=== PATIENT | female | born 1935 | race Caucasian/White ===

== ENCOUNTER 2025-02-23 09:34 | Emergency (ER) | payer OTHER ==
--- OUTSIDE RECORDS SUMMARY | 2025-02-23 09:49 | XMS REPORT | Continuity of Care Document ---
Author Name Unknown Address [address] [place] [address] [facility] Address [address] [place] [address] Care Team Providers Care Loan Teller Name Role Phone MANDIE BENNETT JR Primary Care Physician UnaMARLIN Galeano Attending Clinician Unavailable MARLIN PATHAK Attending Clinician Unavailable Jarret Shaw MD Attending Clinician [phone] JARRET SHAW Attending Clinician UnavailJARRET Bejarano Attending Clinician Unavailstewart e Doctor Unassigned, [place] Attending Clinician U Pat Jarvis Attending Clinician [phone] PAT ANTHONY Attending Clinician Unavailable Payers Payer Name Policy Type Policy Number Effective Date Expirati on Date Source [facility] MEDICARE ADVANTAGE [id number] 2022 00:00:00 [facility] PPO [id number] 2022 00:00:00 Problems Condition Name Condition Details Condition Category Status Onset Date Resolution Date Last Treatment Date Treating Clinician Comments Source 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 ICD10 Diagnosis Term Label Designer Utility [facility] Allergies, Adverse Reactions, Alerts Allergy Name Allergy Type Status Severity Reaction(s) Onset Date Inactive Date Treating Clinician Comments Source TETANUS VACCINES AND TOXOID Drug Class Active Anaphylaxis 05-17 00:00: 00 [facility] Tetanus Vaccines And Toxoid Propensi ty to adverse reaction s Active Anaphylaxis 05-17 00:00: 00 [facility] Social History Social Habit Start Date Stop Date Quantity Comments Source Sexual orientation [facility] Alcohol intake 2024-01-17 00:00:00 2024-01-17 00:00:00 Current non-drinker of alcohol (finding) [facility] History of Social function 2024-01-17 00:00:00 2024-01-17 00:00:00 [facility] Cigarettes smoked current (pack per day) - Reported 2023-04-11 00:00:00 2023-04-11 00:00:00 [facility] Cigarette pack-years 2023-04-11 00:00:00 2023-04-11 00:00:00 [facility] Tobacco use and exposure 2023-04-11 00:00:00 2023-04-11 00:00:00 Smokeless tobacco non-user [facility] History of tobacco use 1997-03-25 00:00:00 Cigarette Smoker [facility] Sex Assigned At 1935 00:00:00 1935 00:00:00 [facility] Smoking Status Start Date Stop Date Source Ex-smoker 2023-04-11 00:00:00 2023-04-11 00:00:00 [facility] Medications Ordered Medication Name Filled Medication Name Start Date Stop Date Current Medication? Ordering Clinician Indication Dosage Frequency Signature (SIG) Comments Components Source IBUPROFEN 600 mg tablet 11-30 00:00: 00 Yes [id number] TAKE 1 TAB BY MOUTH EVERY 6 HOURS NEEDED PAIN (SCALE 4-6) [facility] ibuprofen 600 mg tablet 2022-10 00:00: 00 11-30 00:00 :00 No [id number] 600mg Take 1 tablet by mouth every 6 (six) hours as needed for Pain (scale 4-6). [facility] budesonide- formoterol (SYMBICORT) 160-4.5 mcg/actuati on inhaler 2017-10 0 00:00: 00 Yes 2{puff} Inhale 2 Puffs 2 (two) times daily. [facility] nebivolol (BYSTOLIC) 10 mg tablet 05-27 15:17: 20 Yes 10mg Take 10 mg by mouth daily. [facility] losartan 50 mg tablet 05-27 15:17: 20 Yes 50mg Take 50 mg by mouth daily. [facility] zolpidem 10 mg tablet 05-27 15:17: 20 Yes 10mg Take 10 mg by mouth at bedtime as needed for Insomnia. [facility] furosemide 40 mg tablet 05-27 15:17: 20 Yes 40mg Take 40 mg by mouth daily. [facility] amLODIPine 10 mg tablet 05-27 15:17: 20 Yes 10mg Take 10 mg by mouth daily. [facility] levothyroxi ne 75 mcg tablet 05-27 15:17: 20 Yes 75ug Take 75 mcg by mouth every morning. [facility] potassium chloride 20 mEq tablet 05-27 15:17: 20 Yes 20meq Take 20 mEq by mouth daily. [facility] TURMERIC, BULK, MISC 05-27 15:17: 20 Yes 500mg 500 mg. [facility] ascorbic acid, vitamin C, (VITAMIN C) 500 mg tablet 05-27 15:17: 20 Yes 500mg Take 500 mg by mouth. [facility] albuterol 90 mcg/actuati on inhaler 05-27 00:00: 00 Yes 2{puff} Inhale 2 Puffs every 6 (six) hours as needed for Wheezing or Shortness of Breath. [facility] fluticasone (FLONASE) 50 mcg/actuati on nasal spray 03-25 00:00: 00 Yes 2{spray } Use 2 Sprays in each nostril daily. [facility] DULOXETINE 60 MG ORAL CPDR 05-19 00:00: 00 Yes 1 Cap Oral DAILY [facility] Immunizations Ordered Immunization Name Filled Immunization Name Date Status Comments Source Influenza Virus Vaccine 2017-07-27 00:00:00 Completed [facility] Influenza Virus Vaccine 2017-07-27 00:00:00 Completed [facility] Pneumococcal 13 Conjugate, PCV13 (Prevnar 13) 2017-05-27 00:00:00 Completed [facility] Pneumococcal 13 Conjugate, PCV13 (Prevnar 13) 2017-05-27 00:00:00 Completed [facility] Pneumococcal 13 Conjugate, PCV13 (Prevnar 13) Unknown Completed [facility] Influenza Virus Vaccine Unknown Completed [facility] Pneumococcal 13 Conjugate, PCV13 (Prevnar 13) Unknown Completed [facility] Influenza Virus Vaccine Unknown Completed [facility] Pneumococcal 13 Conjugate, PCV13 (Prevnar 13) Unknown Completed [facility] Influenza Virus Vaccine Unknown Completed [facility] Pneumococcal 13 Conjugate, PCV13 (Prevnar 13) Unknown Completed [facility] Influenza Virus Vaccine Unknown Completed [facility] Pneumococcal 13 Conjugate, PCV13 (Prevnar 13) Unknown Completed [facility] Influenza Virus Vaccine Unknown Completed [facility] Pneumococcal 13 Conjugate, PCV13 (Prevnar 13) Unknown Completed [facility] Influenza Virus Vaccine Unknown Completed [facility] Pneumococcal 13 Conjugate, PCV13 (Prevnar 13) Unknown Completed [facility] Influenza Virus Vaccine Unknown Completed [facility] Pneumococcal 13 Conjugate, PCV13 (Prevnar 13) Unknown Completed [facility] Influenza Virus Vaccine Unknown Completed [facility] Vital Signs Vital Name Observation Time Observation Value Comments S ource Systolic blood pressure 2023-10-18 21:12:00 137 mm[Hg] [facility] Diastolic blood pressure 2023-10-18 21:12:00 79 mm[Hg] [facility] Heart rate 2023-10-18 21:12:00 76 /min [facility] Body height 2023-10-18 21:12:00 162.6 cm [facility] 2023-10-18 21:12:00 53.797 kg [facility] BMI 2023-10-18 21:12:00 20.36 kg/m2 [facility] Oxygen saturation in Arterial blood by Pulse oximetry 2023-10-18 21:12:00 97 /min [facility] Body height 2023-04-11 15:07:00 154.9 cm [facility] Body weight 2023-04-11 15:07:00 56.654 kg [facility] BMI 2023-04-11 15:07:00 23.60 kg/m2 [facility] Procedures Procedure Date / Time Performed Performing Clinicia n Source XR HIPS 2 VW RIGHT 2024-01-17 18:26:54 Jarret Shaw [facility] EXTERNAL PROVIDER RECORDS 2024-01-01 05:01:00 Doctor Unassigned, [place] [facility] ASSIGNMENT OF BENEFITS 2023-04-06 14:06:46 Docto r Unassigned, [place] [facility] Encounters Start Date/Time End Date/Time Encounter Type Admission Type Attending Clinicians Care Facility Care Department Encounter ID Source 2023-03-20 13:32:05 Outpatient [facility] [id number] [facility] 2024-02-28 11:30:00 2024-02-28 11:30:00 Outpatient MARLIN RODRÍGUEZ [facility] [id number] [facility] 2024-01-17 13:21:00 2024-01-17 23:59:00 Hospital Encounter Jarret Shaw [facility] [id number] 350.1.13.10 [id number] [id number] [facility] 2024-01-17 13:30:00 2024-01-17 15:14:40 Outpatient R JARRET SHAW [facility] [id number] [facility] 2024-01-17 13:30:00 2024-01-17 15:14:40 [facility] 1..840.114 350.1.13.10 4.2.7.2.686 [id number] [facility] 2024-01-01 00:00:00 2024-01-01 00:00:00 Telephone [facility] 1..840.114 350.1.13.10 4.2.7.2.686 [id number] [facility] 2024-01-01 00:00:00 2024-01-01 00:00:00 Orders Only Doctor Unassigned, [place] [facility] 1..840.114 350.1.13.10 4.2.7.2.686 [id number] [facility] 2023-11-27 00:00:00 2023-11-27 00:00:00 Refill Jarret Shaw [facility] 1..840.114 350.1.13.10 4.2.7.2.686 [id number] [facility] 2023-11-20 10:30:00 2023-11-20 10:30:00 Outpatient MARLIN RODRÍGUEZ [facility] [id number] [facility] 2023-10-18 15:18:32 2023-10-18 23:59:00 Hospital Encounter [facility]ret Shaw [facility] [id number] 350.1.13.10 4.2.7.2.686 [id number] [facility] 2023-10-18 14:45:00 2023-10-18 15:56:31 Outpatient R JARRET SHAW [facility] [id number] [facility] 2023-10-18 14:45:00 2023-10-18 15:56:31 Office Visit Jarret Shaw COUNTS [facility] [id number] 350.1.13.10 4.2.7.2.686 [id number] [facility] 2023-10-10 00:00:00 2023-10-10 00:00:00 Telephone Jarret Shaw COUNTS [facility] 1..840.114 350.1.13.10 4.2.7.2.686 [id number] [facility] 2023-04-11 09:45:00 2023-04-11 10:15:00 Office Visit Pat [facility] 1..840.114 350.1.13.10 4.2.7.2.686 [id number] [facility] 2023-04-11 09:45:00 2023-04-11 09:45:00 Outpatient PAT [facility] [id number] [facility] 2023-04-10 10:00:00 2023-04-10 10:00:00 Outpatient PAT [facility] [id number] [facility] 2023-04-06 09:00:00 2023-04-06 09:00:00 Outpatient Jaime ANTHONY [facility] [id number] [facility] 2023-04-06 00:00:00 2023-04-06 00:00:00 Orders Only Doctor Unassigned, [place] [facility] [id number] 350.1.13.10 4.2.7.2.686 [id number] [facility] 2023-02-26 10:00:00 2023-02-26 10:00:00 Outpatient MARLIN RODRÍGUEZ [facility] [id number] [facility] Results Test Description Test Time Test Comments Results Result Comments Source XR HIPS 2 VW RIGHT 18:33:40 EXAM: XR HIPS 2 VW RIGHT HISTORY: s/p rt thr Room COMPARISON: 10/18/2023 FINDINGS: Changes of right hip arthroplasty are seen with unchanged alignment. 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 Osteopenia is noted. Vascularcalcifications are seen. 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 [facility] Notes Date/Time Note Provider Source 2024-01-01 14:03:44 Received consultation report from [facility]. Scanned into patient's chart. Isabella Colbert [facility]
[2025-02-23] MEDS ORDERED: AMOX/K CLAV 875 MG TAB ONE (10:37)
[2025-02-23] MEDS ORDERED: KETOROLAC 30 MG/ML INJ ONE (10:37)
[2025-02-23] MEDS ORDERED: TRAMADOL HCL 50 MG TAB ONE (10:38)
--- NOTE | 2025-02-23 10:59 | ER ---
Nurse's Notes [facility] Name: Lizzeth Ruelas Age: 89 yrs Sex: Female : 1935 Arrival Date: 02/23/2025 Time: 09:34 Bed DX3 Private MD: Diagnosis: Dentalgia Presentation: 02/23 10:25 Chief complaint: Patient states: she has been having a sore tooth on the bottom right ap3 side since Sunday02/20/25. patient currently rates her pain as a 10/10 on the pain scale. Coronavirus screen: At this time, the client does not indicate any symptoms associated with coronavirus-19. Ebola Screen: No symptoms or risks identified at this time. Initial Sepsis Screen: Does the patient meet any 2 criteria? No. Patient's initial sepsis screen is negative. Does the patient have a suspected source of infection? No. Patient's initial sepsis screen is negative. Risk Assessment: Do you want to hurt yourself or someone else? Patient reports no desire to harm self or others. Onset of symptoms was February 20, 2025. Transition of care: patient was received from another setting of care (long-term care facility), [facility]. 10:25 Method Of Arrival: Ambulatory ap3 10:25 Acuity: STORM 4 ap3 Triage Assessment: 10:27 General: Appears uncomfortable, Behavior is calm, cooperative, appropriate for age. ap3 Pain: Complains of pain in mouth, right lower side Pain currently is 10 out of 10 on a pain scale. EENT: Reports pain in mouth, right lower. Neuro: Level of Consciousness is awake, alert, obeys commands, Oriented to person, place, time, situation. Cardiovascular: Patient's skin is warm and dry. Respiratory: Airway is patent Respiratory effort is even, unlabored, Respiratory pattern is regular, symmetrical. Historical: - Allergies: 10:27 Tetanus Vaccines \T\ Toxoid; ap3 - PMHx: 10:27 Alcohol dependence; Chronic obstructive lung disease; depressive disorder; Hypertensive ap3 disorder; Hypothyroidism; insomnia; neuropathy; restless leg syndrome; - Immunization history:: Client reports receiving the 2nd dose of the Covid vaccine, Flu vaccine is up to date. - Infectious Disease History:: Denies. - Social history:: Smoking status: Patient denies any tobacco usage or history of. - Family history:: not pertinent. - Hospitalizations: : No recent hospitalization is reported. Screenin:28 Abuse screen: Denies threats or abuse. Nutritional screening: No deficits noted. ap3 Tuberculosis screening: No symptoms or risk factors identified. 11:14 [facility] ED Fall Risk Assessment (Adult) History of falling in the last 3 months, jl7 including since admission No falls in past 3 months (0 pts) Confusion or Disorientation No (0 pts) Intoxicated or Sedated No (0 pts) Impaired Gait No (0 pts) Mobility Assist Device Used Yes (1 pt) Altered Elimination No (0 pt) Score/Fall Risk Level 0 - 2 = Low Risk Oriented to surroundings, Maintained a safe environment. Vital Signs: 10:25 BP 170 / 81; Pulse 59; Resp 19; Temp 97.6(O); Pulse Ox 92% ; Weight 58.97 kg; Height 5 ap3 ft. 5 in. ; Pain 10/10; 11:14 BP 179 / 79; Pulse 61; Resp 17; Pulse Ox 95% ; jl7 10:25 Body Mass Index 21.63 (58.97 kg, 165.1 cm) ap3 10:25 Pain Scale: Adult ap3 ED Course: 09:42 Patient arrived in ED. cj3 10:10 Emmanuel Ye MD is Attending Physician. rn 10:27 Triage completed. ap3 10:28 Arm band placed on right wrist. ap3 10:29 Patient has correct armband on for positive identification. ap3 11:14 No provider procedures requiring assistance completed. Patient did not have IV access jl7 during this emergency room visit. Administered Medications: 11:05 Drug: Ketorolac IM 15 mg IM once Route: IM; Site: right deltoid; jl7 11:14 Drug: Amoxicillin-Clavulanate PO 875 mg PO once Route: PO; jl7 11:14 Drug: traMADol PO 50 mg PO once Route: PO; jl7 Medication: 11:14 VIS not applicable for this client. jl7 Outcome: 10:58 Discharge ordered by . rn 11:14 Discharged to home ambulatory, jl7 11:14 Condition: stable 11:14 Discharge instructions given to patient, friend, Instructed on discharge instructions, follow up and referral plans. medication usage, Demonstrated understanding of instructions, follow-up care, medications, Prescriptions given X 3, 11:15 Patient left the ED. jl7 Signatures: Emmanuel Ye MD MD rn Evans Chin RN RN jl7 Ysabel Peterson RN RN corey3 Shirley Joel 3
--- NOTE | 2025-02-23 10:59 | EDPHYS ---
Physician Documentation [facility] Name: Lizzeth Ruelas Age: 89 yrs Sex: Female : 1935 Arrival Date: 02/23/2025 Time: 09:34 Bed DX3 Private MD: ED Physician Emmanuel Ye HPI: 02/23 10:33 This 89 yrs old Female presents to ER via Ambulatory with complaints of Toothache. rn 10:33 Patient reports dental pain for the last few days. Located lower right front teeth. rn Denies any injury. No fever or chills. Reports subjective swelling. No difficulty breathing or swallowing. Reports hurts to eat and talk. Called dentist and unable to get in for a week.. Historical: - Allergies: 10:27 Tetanus Vaccines \T\ Toxoid; ap3 - PMHx: 10:27 Alcohol dependence; Chronic obstructive lung disease; depressive disorder; Hypertensive ap3 disorder; Hypothyroidism; insomnia; neuropathy; restless leg syndrome; - Immunization history:: Client reports receiving the 2nd dose of the Covid vaccine, Flu vaccine is up to date. - Infectious Disease History:: Denies. - Social history:: Smoking status: Patient denies any tobacco usage or history of. - Family history:: not pertinent. - Hospitalizations: : No recent hospitalization is reported. ROS: 10:33 Constitutional: Negative for fever, chills, and weight loss, Eyes: Negative for injury, rn pain, redness, and discharge, ENT: Positive for dental pain and subjective swelling Neck: Negative for injury, pain, and swelling, Respiratory: Negative for shortness of breath or difficulty breathing Exam: 10:33 Constitutional: This is a well developed, well nourished patient who is awake, alert, rn and in no acute distress. ENT: Poor dentition, right lower frontal teeth site of reported pain without obvious swelling or erythema. No buccal space swelling or fluctuance. No submandibular space swelling or tenderness Neck: Nontender, no masses Vital Signs: 10:25 BP 170 / 81; Pulse 59; Resp 19; Temp 97.6(O); Pulse Ox 92% ; Weight 58.97 kg; Height 5 ap3 ft. 5 in. ; Pain 10/10; 11:14 BP 179 / 79; Pulse 61; Resp 17; Pulse Ox 95% ; jl7 10:25 Body Mass Index 21.63 (58.97 kg, 165.1 cm) ap3 10:25 Pain Scale: Adult ap3 MDM: 10:10 Medical Screening Exam initiated rn 10:57 Differential diagnosis: dental caries, dental abscess. Data reviewed: vital signs, rn nurses notes, and as a result, I will discharge patient. Counseling: I had a detailed discussion with the patient and/or guardian regarding the historical points, exam findings, and any diagnostic results supporting the discharge/admit diagnosis, the need for outpatient follow up, to return to the emergency department if symptoms worsen or persist or if there are any questions or concerns that arise at home. Response to treatment: the patient's symptoms have mildly improved after treatment, and as a result, I will discharge patient. Special discussion: I discussed with the patient/guardian in detail that at this point there is no indication for admission to the hospital. It is understood, however, that if the symptoms persist or worsen the patient needs to return immediately for re-evaluation. Based on the history and exam findings, there is no indication for further emergent testing or inpatient evaluation. I discussed with the patient/guardian the need to see a dentist for further evaluation of the symptoms. ED course: Patient has dental appointment in 6 days. Will discharge home with antibiotics and as needed pain medication. Given return precautions.. Administered Medications: 11:05 Drug: Ketorolac IM 15 mg IM once Route: IM; Site: right deltoid; jl7 11:14 Drug: Amoxicillin-Clavulanate PO 875 mg PO once Route: PO; jl7 11:14 Drug: traMADol PO 50 mg PO once Route: PO; jl7 Disposition Summary: 02/23/25 10:58 Discharge Ordered Notes: Location: Home rn Problem: new rn Symptoms: have improved rn Condition: Stable rn Diagnosis - Dentalgia rn Followup: rn - With: Private Physician - When: As needed - Reason: Recheck today's complaints, Re-evaluation by your physician Discharge Instructions: - Discharge Summary Sheet rn - Dental Pain rn Forms: - Medication Reconciliation Form rn - Antibiotic staff development coordinator rn - Prescription Opioid Use rn - Patient Portal Instructions rn - Leadership Thank You Letter rn Prescriptions: - Augmentin 875-125 mg Oral Tablet - take 1 tablet ORAL route every 12 hours for 10 days; 20 tablet; Refills: 0, rn Product Selection Permitted - Diflucan 150 mg Oral Tablet - take 1 tablet ORAL route one time for 1 day; 1 tablet; Refills: 0, Product rn Selection Permitted - Tramadol 50 mg Oral Tablet - take 1 tablet ORAL route every 8 hours as needed; 12 tablet; Refills: 0, rn Product Selection Permitted Signatures: Emmanuel Ye MD MD rn Leal, Jahala, RN RN jl7 Ysabel Peterson RN RN ap3
[2025-02-23 11:21] VITALS: TEMP 97.6
[2025-02-23 11:22] VITALS: BP 179/79; O2SAT 95
== END 2025-02-23 11:15 | disposition home or self-care (01) ==
LOC: ER 09:34
DX: K08.89 Other specified disorders of teeth and supporting structures (principal); F10.20 Alcohol dependence, uncomplicated
CPT/HCPCS: 96372; 99284